=== PATIENT | female | born 1990 | race Caucasian/White ===

== ENCOUNTER 2017-04-09 20:15 | Emergency (ER) | payer OTHER ==
[~2017-04-09 20:15] MED LIST: FLEXERIL10 MG PO; NO MEDICATIONS; PEPCID40 MG PO; ZOFRAN ODT4 MG/UDTAB PO
== END 2017-04-09 21:06 | disposition home or self-care (01) ==
LOC: SED 20:15
DX: L02.01 Cutaneous abscess of face (principal); R03.0 Elevated blood-pressure reading, without diagnosis of hypertension; Z98.51 Tubal ligation status; F17.210 Nicotine dependence, cigarettes, uncomplicated; Z88.0 Allergy status to penicillin; Z88.8 Allergy status to other drugs, medicaments and biological substances
CPT/HCPCS: 99282